=== PATIENT | male | born 1995 | race Caucasian/White ===

== ENCOUNTER 2025-03-01 07:53 | Emergency (ER) | payer OTHER, SELFPAY ==
[2025-03-01] VITALS (7 sets, daily range): BP systolic 136–153; BP diastolic 83–89; PULSE 101–116; RESP 17; TEMP 36.8; O2SAT 94–99; BMI 34.4
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
[2025-03-01 08:40] LABS: Add Manual Diff / Slide Review NO; Hematocrit 46.2 % (41-53); Hemoglobin 15.8 g/dL (13.5-17.5); Lymphocytes Absolute Auto 2100 /uL (1100-4500); Mean Corpuscular HGB Conc 34.3 % (30-36); Mean Corpuscular Hemoglobin 30.8 PG (26-34); Mean Corpuscular Volume 89.8 fL (80-100); Platelet Count 247 X10^3/uL (150-400)
[2025-03-01 08:46] LABS: Alanine Aminotransferase 37 IU/L (<50); Albumin 4.7 g/dL (3.5-5.0); Albumin Globulin Ratio 1.6 (1.0-2.8); Alkaline Phosphatase 83 U/L (38-126); Blood Urea Nitrogen 17 mg/dL (9-20); Calcium 9.2 mg/dL (8.4-10.2); Carbon Dioxide 25 mmol/L (22-32); Chloride 105 mmol/L (98-107); Estimated Glomerular Filt Rate > 60 mL/min (>60); Globulin 2.9 g/dL (1.7-4.1); Glucose 115 mg/dL (70-99); HEMOLYSIS 19 (0-50); Lipase 77 U/L (23-300); Potassium 4.1 mmol/L (3.4-5.1); Sodium 139 mmol/L (137-145); Total Protein 7.6 g/dL (6.3-8.2)
[2025-03-01] MEDS: TET,DIPH,PERTUSS(ACELL),VAC/PF 0.5 ML SYRINGE IM (08:56)
[2025-03-01] MEDS: SODIUM CHLORIDE 0.9% 500 ML 1000 ML IV (08:59)
== END 2025-03-01 09:41 | disposition home or self-care (01) ==
PROVIDERS: Emergency Provider Emergency Medicine
DX: S62.616A Displaced fracture of proximal phalanx of right little finger, initial encounter for closed fracture (principal); S30.11XA Contusion of abdominal wall, initial encounter; R55 Syncope and collapse; V49.40XA Driver injured in collision with unspecified motor vehicles in traffic accident, initial encounter; Z23 Encounter for immunization; Z86.69 Personal history of other diseases of the nervous system and sense organs
CPT/HCPCS: 29130; 70450; 71275; 72125; 73130; 74177; 80053; 83690; 85025; 90471; 99284; 90715; J7040; Q9967